=== PATIENT | male | born 1965 | race Caucasian/White ===

== ENCOUNTER 2021-01-02 17:09 | Outpatient (REF) | payer OTHER, SELFPAY ==
--- NOTE | ~2021-01-02 | XR_ITS ---
EXAMINATION: XR SHOULDER, RIGHT CLINICAL INFORMATION: Right shoulder pain. COMPARISON: None TECHNIQUE: AP external rotation, Grashey, scapular Y, and axillary views of the right shoulder. FINDINGS: No acute fracture or dislocation. Acromioclavicular joint space narrowing with marginal osteophytes. No glenohumeral joint space narrowing. Tiny inferior marginal osteophytes. No osseous erosion. No abnormal soft tissue calcification. XR/XR shoulder RT min 2V IMPRESSION: Moderate acromioclavicular and minimal glenohumeral osteoarthritis.
== END 2021-01-02 17:10 | disposition home or self-care (01) ==
LOC: HO.XRAY 17:09
PROVIDERS: Absent Provider Registered Nurse Community Health; PCP Registered Nurse Community Health; Visit Provider Nurse Practitioner
DX: M25.511 Pain in right shoulder (principal)
CPT/HCPCS: 73030

== ENCOUNTER 2023-05-23 09:24 | Outpatient (REF) | payer MEDICAID, SELFPAY ==
[2023-05-23 10:40] LABS: Creatinine Urine 238.91 mg/dL; Microalbum/Creatinine Ratio Ur 4.1 ug/mg cr (<30)
[2023-05-23 10:53] LABS: Alanine Aminotransferase 31 U/L (0-40); Albumin Level 4.1 g/dL (3.5-5.0); Alkaline Phosphatase 108 U/L (39-117); Anion Gap 9 (12-20); Aspartate Amino Transferase 30 U/L (5-37); Bilirubin Total 0.4 mg/dL (0.0-1.0); Blood Urea Nitrogen 14 mg/dL (9-16); Calcium 9.2 mg/dL (8.4-10.2); Carbon Dioxide 30 mmol/L (22-29); Chloride 105 mmol/L (96-108); Cholesterol 169 mg/dL (<200); Estimated Glomerular Filt Rate > 60; Glucose Random 137 mg/dL (60-115); HDL Cholesterol 53 mg/dL (>40); LDL Cholesterol Calculated 91 mg/dL (<100); Potassium 4.1 mmol/L (3.3-5.1); Sodium 140 mmol/L (135-145); Total Protein 7.8 g/dL (6.5-8.0); Triglycerides 126 mg/dL (<150)
[2023-05-23 11:01] LABS: HBS Num1 12.87 mIU/mL (0-7.99); HBc Num1 0.11 S/CO (0.00-0.79); HBsAGNum1 0.31 S/CO (0.00-0.99); Hepatitis A Antibody IgM 0.21 Index (0-0.79); Hepatitis B Core Antibody Nonreactive (Nonreactive); Hepatitis B Surface Antigen Negative (Negative); ~HepC Num1 0.08 S/CO (0.00-0.79); ~Hepatitis A Antibody IgM Nonreactive (Nonreactive); ~Hepatitis B Surface Antibody REACTIVE (Nonreactive); ~Hepatitis C Antibody Nonreactive (Nonreactive)
[2023-05-23 11:11] LABS: TSH reflex Free T4 3.11 uIU/mL (0.32-4.0)
== END 2023-05-23 09:25 | disposition home or self-care (01) ==
LOC: HO.LAB 09:24
PROVIDERS: PCP Registered Nurse; Visit Provider Registered Nurse
DX: Z00.00 Encounter for general adult medical examination without abnormal findings (principal); E11.69 Type 2 diabetes mellitus with other specified complication; E07.9 Disorder of thyroid, unspecified
CPT/HCPCS: 36415; 80053; 80061; 82043; 82570; 84153; 84443; 86704; 86706; 86709; 86803; 87340

== ENCOUNTER 2023-06-25 11:36 | Emergency (ER) | payer MEDICAID, SELFPAY ==
--- NOTE | 2023-06-25 11:45 | ECG_ITS ---
Test Reason : ABDOMINAL PAIN Blood Pressure : / mmHG Vent. Rate : 072 BPM Atrial Rate : 072 BPM P-R Int : 154 ms QRS Dur : 074 ms QT Int : 386 ms P-R-T Axes : 033 -05 038 degrees QTc Int : 422 ms Normal sinus rhythm Normal ECG When compared with ECG of 27-APR-2019 17:50, No significant change was found Referred By: Brynn Peña Electronically Signed By:KAMRYN TORRES MD
--- NOTE | 2023-06-25 11:45 | ED_ITS ---
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 Related Data Allergies Allergy/AdvReac Type Severity Reaction Status Date / Time No Known Allergies Allergy Verified 06/25/23 11:51 [No Known Allergies*] Review of Systems Review of Systems Pertinent positives and negatives as stated in HPI PMFSH Past Medical History Source: nursing notes reviewed Social History Social History Smoked in Last 30 Days: No Use of substances other than those prescribed or required for medical reasons: No Advance Directives: No Advance Directives Information Provided: No Physical Exam ED Vital Signs: Vital Signs - 24 hr 06/25/23 11:46 06/25/23 11:52 06/25/23 14:15 Temperature 97.6 F Pulse Rate 78 73 69 Respiratory Rate 16 16 16 Blood Pressure 117/63 104/59 L Pulse Oximetry 99 99 100 Oxygen Delivery Method Room Air Room Air Room Air BMI result Body Mass Index 33.3 VITAL SIGNS: Reviewed. GENERAL: Well developed, well nourished, in no acute distress. HEAD: Normocephalic/atraumatic EYES: PERRLA, EOMI EARS: Ext canals without abnormality NOSE: Nares patent bilateral OROPHARYNX: no oral lesions noted, posterior pharynx clear NECK: Supple, no adenopathy LUNGS: Normal breath sounds. No adventitious sounds or accessory muscle use. SpO2<99> CARDIOVASCULAR: Regular rate and rhythm without noted murmurs ABDOMEN: Soft, non-tender, non-distended with bowel sounds. MUSCULOSKELETAL: No tenderness, deformities, or effusions noted on gross inspection. EXTREMITIES: No cyanosis, clubbing or edema. SKIN: Inspection of the skin reveals no rashes NEUROLOGIC: Alert and oriented x 4. Strength and sensation to light touch were grossly intact x 4. NIH Stroke Scale Internal: Initial- Upon Arrival Level of Consciousness: Alert Level of Consciousness Questions: Answers both questions correctly Level of Consciousness Commands: Performs both tasks correctly Best Gaze: Normal Visual: No visual loss Facial Palsy: Normal Motor Arm (Right): No drift Motor Arm (Left): No drift Motor Leg (Right): No drift Motor Leg (Left): No drift Limb Ataxia: Absent Sensory: Normal Best Language: No aphasia Dysarthia: Normal Extinction and Inattention: No abnormality Score: 0 Medical Decision Making Medical Decision Making [facility] Narrative: 1205: 58-year-old male with history and clinical presentation, DDX: Suspect near-syncope secondary to abdominal pain and nausea, no clinical suspicion for TIA/intracranial pathology at this time, will evaluate for possible infection. The who we obtained collateral information from provides information that does not seem to make sense, she states that her goddaughter was trying to reach EMS for the past 4 hours. I reviewed all investigations and hematologic indices are negative for leukocytosis/anemia/thrombocytopenia. Coagulation studies are without evidence derangement. Chemistry indices not indicative of LAWANDA/electrolyte or liver enzyme derangements. Patient has no evidence to suggest a low blood sugar and also on further questioning with a customer engagement representative he states that his blood sugar was fine when he checked it at home. Viral testing negative for influenza/RSV/COVID. 1425: I evaluated the patient again at bedside and had him sit at the edge of the bed and then stand as well as ambulate around in the room. Patient was noted to ambulate with a steady gait and denies feeling lightheaded/dizzy or short of breath and denies experiencing any palpitations. Patient also denies any further feelings GI upset. Urinalysis is negative for UTI or hematuria and UDS is negative. Patient's symptoms have completely resolved, suspect he may have had a small episode food poisoning as he reports he ate a bunch of pork last night. Differential Diagnosis Differential Diagnoses: The differential diagnosis associated with the presentation includes Please see the discussion above Admission/Observation Consideration of admission/observation: Escalation of care including admission/observation considered Please see the discussion above Lab Data [facility] Lab Attestation statement: I reviewed the patient's lab results. Please see the discussion above 06/25/23 12:07 06/25/23 12:07 Labs: Lab Results 03/01/0906/25/23 06/25/23 Range/Units 12:07 12:08 14:31 WBC 8.3 (4.8-10.8) X10*3/uL RBC 5.14 (4.60-5.80) X10*6/uL Hgb 15.5 (14.0-18.0) g/dl Hct 46.3 (42.0-52.0) % MCV 90.1 (80.0-98.0) fL MCH 30.2 (27.0-33.0) pg MCHC 33.5 (31.0-36.0) g/dl RDW 13.5 (11.0-16.0) % Plt Count 203 (160-400) X10*3/uL MPV 10.7 (9.4-12.4) fL Immature Gran % (Auto) 0.4 (0.0-0.4) % Neut % (Auto) 82.7 H (45-73) % Lymph % (Auto) 12.7 L (20-40) % [place] % (Auto) 3.6 (2-11) % Eos % (Auto) 0.2 (0-4) % Baso % (Auto) 0.4 (0-2) % Lymph # (Auto) 1.1 L (1.2-4.9) X10*3/uL [place]t # (Auto) 0.3 (0.1-1.2) X10*3/uL Eos # (Auto) 0.0 (0.0-0.4) X10*3/uL Baso # (Auto) 0.0 (0.0-0.2) X10*3/uL Abs Immat Gran (auto) 0.03 (0.00-0.03) X10*3/uL Absolute Neuts (auto) 6.8 (2.0-8.3) x10*3/uL Absolute Nucleated RBC 0.000 (0.0-0.012) X10*3/uL Nucleated RBC % (auto) 0.0 (0.0-0.2) /100WBC PT 13.8 H (11.1-13.3) SEC INR 1.1 (0.9-1.1) Sodium 139 (135-145) mmol/L Potassium 4.7 (3.3-5.1) mmol/L Chloride 105 (96-108) mmol/L Carbon Dioxide 27 (22-29) mmol/L Anion Gap 12 (12-20) BUN 25 H (9-16) mg/dL Creatinine 0.98 (0.5-1.4) mg/dL Estim Creat Clear Calc 86.0 Estimated GFR > 60 POC Glucose 189 H (60-115) mg/dL Random Glucose 210 H (60-115) mg/dL Calcium 9.0 (8.4-10.2) mg/dL Total Bilirubin 0.6 (0.0-1.0) mg/dL AST 28 (5-37) U/L ALT 31 (0-40) U/L Alkaline Phosphatase 103 (39-117) U/L Troponin I High Sens 4.9 (<3.5-35.0) ng/L Total Protein 7.4 (6.5-8.0) g/dL Albumin 4.2 (3.5-5.0) g/dL Lipase 20 (8-78) U/L Urine Color Yellow Urine Appearance Clear Urine pH 7.0 (5.0-9.0) Ur Specific [place] >= 1.030 H (1.005-1.025) Urine Protein Trace (Neg-Trace) mg/dL Urine Glucose (UA) >=1000 H (Negative) mg/dL Urine Ketones 15 (Negative) mg/dL Urine Blood Negative (Negative) Urine Nitrite Negative (Negative) Ur Leukocyte Esterase Negative (Negative) Urine RBC 0-2 (0-2) /HPF Urine WBC 0-5 (0-5) /HPF Ur Squamous Epith Cells 0-2 (0-2) /HPF Urine Bacteria None Seen (None Seen) Hyaline Casts 0-2 (0-2) /LPF Urine Opiates Screen Not Detected (Not Detect) Urine Fentanyl Screen Not Detected (Not Detect) Ur Barbiturates Screen Not Detected (Not Detect) Ur Phencyclidine Scrn Not Detected (Not Detect) Ur Amphetamines Screen Not Detected (Not Detect) U Benzodiazepines Scrn Not Detected (Not Detect) Urine Cocaine Screen Not Detected (Not Detect) U Marijuana (THC) Screen Not Detected (Not Detect) Ethyl Alcohol < 10 mg/dL Influenza Type A (PCR) NEGATIVE (Negative) Influenza Type B (PCR) NEGATIVE (Negative) RSV RNA Qual (PCR) NEGATIVE (Negative) SARS-CoV-2 RNA (RT-PCR) NEGATIVE (Negative) Independent Interpretation I performed an independent interpretation of an: EKG Interpretation: Normal sinus rhythm, HR-72, no STEMI, FL/QRS/QTC is within normal limits. External Record Review External record reviewed: Outpatient record, Prior outpatient labs and Prior outpatient radiology Chronic Conditions Patient?s care impacted by: Diabetes and Hypertension Critical Care Time Critical Care Time Critical Care Time: Yes Total Critical Care Time: 45 Attestation: I personally attest to this time spent taking care of the patient. Discharge Plan Discharge Clinical Impression: Epigastric discomfort, Nausea Patient Disposition: Home, Self-Care Instructions: Abdominal Pain (ED), Lightheadedness (ED) Additional Instructions: 1. Reanudar todos los medicamentos caseros seg?n lo recetado. 2. Contin?e bebiendo muchos l?quidos y maryam un seguimiento con ha m?dico de atenci?n primaria el lunes por la ma?keke. Regrese a la emmanuel de emergencias si experimenta alg?n empeoramiento de los s?ntomas. 1. Resume all home medications as prescribed. 2. Continue to drink plenty of fluids and follow-up with your primary care doctor on Tuesday morning. Return to the emergency room if you experience any worsening of symptoms. Referrals: [facility] [Primary Care Provider] - Print Language: Hungarian
[2023-06-25 11:46] VITALS: BP 117/63; BP 128/70; PULSE 78; PULSE 82; RESP 16; TEMP 36.4; O2SAT 100; O2SAT 99; BMI 33.3
[2023-06-25 11:52] VITALS: PULSE 73; RESP 16; O2SAT 99
[2023-06-25 12:11] LABS: Glucose, Whole Blood 189 mg/dL (60-115)
[2023-06-25 12:19] LABS: Basophils Percent Auto 0.4 % (0-2); Eosinophils Percent Auto 0.2 % (0-4); Hematocrit 46.3 % (42.0-52.0); Hemoglobin 15.5 g/dl (14.0-18.0); Imm Gran Abs Auto 0.03 X10*3/uL (0.00-0.03); Imm Gran Pct Auto 0.4 % (0.0-0.4); Lymphocytes Absolute Auto 1.1 X10*3/uL (1.2-4.9); Lymphocytes Percent Auto 12.7 % (20-40); MANUAL DIFF FLAG NO; Mean Corpuscular HGB Conc 33.5 g/dl (31.0-36.0); Mean Corpuscular Hemoglobin 30.2 pg (27.0-33.0); Mean Corpuscular Volume 90.1 fL (80.0-98.0); Mean Platelet Volume 10.7 fL (9.4-12.4); Monocytes Absolute Auto 0.3 X10*3/uL (0.1-1.2); Monocytes Percent Auto 3.6 % (2-11); Neutrophils Absolute Auto 6.8 x10*3/uL (2.0-8.3); Neutrophils Percent Auto 82.7 % (45-73); Platelet Count 203 X10*3/uL (160-400); Red Blood Count 5.14 X10*6/uL (4.60-5.80); Red Cell Distribution Width 13.5 % (11.0-16.0); White Blood Count 8.3 X10*3/uL (4.8-10.8)
[2023-06-25 12:26] LABS: INTERNATIONAL NORM RATIO 1.1 (0.9-1.1); Prothrombin Time 13.8 SEC (11.1-13.3)
[2023-06-25 12:44] LABS: Alanine Aminotransferase 31 U/L (0-40); Albumin Level 4.2 g/dL (3.5-5.0); Alkaline Phosphatase 103 U/L (39-117); Anion Gap 12 (12-20); Aspartate Amino Transferase 28 U/L (5-37); Bilirubin Total 0.6 mg/dL (0.0-1.0); Blood Urea Nitrogen 25 mg/dL (9-16); Carbon Dioxide 27 mmol/L (22-29); Chloride 105 mmol/L (96-108); Estimated Glomerular Filt Rate > 60; Glucose Random 210 mg/dL (60-115); Potassium 4.7 mmol/L (3.3-5.1); Sodium 139 mmol/L (135-145); Total Protein 7.4 g/dL (6.5-8.0)
[2023-06-25 12:51] LABS: Troponin-I High Sensitivity 4.9 ng/L (<3.5-35.0)
[2023-06-25 13:02] LABS: Influenza A PCR NEGATIVE (Negative); Influenza B PCR NEGATIVE (Negative); Resp Syncy Virus RNA Qual PCR NEGATIVE (Negative); SARS COV2 PCR INHOUSE NEGATIVE (Negative)
[2023-06-25 13:33] LABS: Ethanol < 10 mg/dL
[2023-06-25 14:14] LABS: Lipase 20 U/L (8-78)
[2023-06-25 14:15] VITALS: BP 104/59; PULSE 69; RESP 16; O2SAT 100
[2023-06-25 14:37] LABS: Appearance Urine Clear; Color Urine Yellow; Glucose Urine UA >=1000 mg/dL (Negative); Leukocyte Esterase Urine Negative (Negative); Nitrite Urine Negative (Negative); Specific Gravity - Urine >= 1.030 (1.005-1.025); UMIC TRIGGER UACC YES; Urine Blood Negative (Negative); Urine Ketones 15 mg/dL (Negative); Urine Protein Trace mg/dL (Neg-Trace)
[2023-06-25 14:42] LABS: Bacteria Urine None Seen (None Seen); Hyaline Casts Urine 0-2 /LPF (0-2); RBC Urine 0-2 /HPF (0-2); Squamous Epithelial Cell Urine 0-2 /HPF (0-2); WBC Urine 0-5 /HPF (0-5)
[2023-06-25 14:52] LABS: Amphetamine Screen Urine Not Detected (Not Detect); Barbiturates, Urine Not Detected (Not Detect); Benzodiazepines Screen Urine Not Detected (Not Detect); Cannabinoid Screen Urine Not Detected (Not Detect); Cocaine Screen Urine Not Detected (Not Detect); Fentanyl, urine Not Detected (Not Detect); Opiate Screen Urine Not Detected (Not Detect); Phencyclidine Screen Urine Not Detected (Not Detect)
== END 2023-06-25 15:18 | disposition home or self-care (01) ==
PROVIDERS: Emergency Provider Student in an Organized Health Care Education/Training Program
DX: R10.13 Epigastric pain (principal); R10.9 Unspecified abdominal pain; R55 Syncope and collapse; R11.0 Nausea; Z11.52 Encounter for screening for COVID-19; Z20.828 Contact with and (suspected) exposure to other viral communicable diseases
CPT/HCPCS: 0241U; 80053; 80307; 81001; 82947; 83690; 84484; 85025; 85610; 93005; 99284

== ENCOUNTER → 2023-06-25 11:45 | Outpatient (BNV) | payer MEDICAID, SELFPAY | PROVIDERS: Emergency Provider Student in an Organized Health Care Education/Training Program; Visit Provider Internal Medicine Cardiovascular Disease | DX: R10.9 Unspecified abdominal pain (principal) | CPT/HCPCS: 93010 ==

== ENCOUNTER 2024-05-18 13:05 | Emergency (ER) | payer OTHER, SELFPAY ==
--- NOTE | ~2024-05-18 | XR_ITS ---
EXAMINATION: XR LUMBOSACRAL SPINE CLINICAL INFORMATION: injury COMPARISON: None available. TECHNIQUE: Three views of the lumbosacral spine. FINDINGS: Multilevel marginal osteophyte formation and syndesmophyte formation from the lower thoracic spine to the lumbar spine. No acute cortical disruption. Questionable grade 1 retrolisthesis L3-4 and L2-3 levels. Facet joint hypertrophy at L4-5 and L5-S1 levels. XR/XR lumbar spine 2-3V IMPRESSION: Multilevel thoracolumbar spondylosis without acute fracture or trauma-related listhesis. If patient's symptoms persist recommend CT. Electronically signed by: Tim Cates MD 05/18/2024 03:11 PM [facility]
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
[2024-05-18 13:46] VITALS: BP 123/76; PULSE 81; RESP 20; TEMP 36.8; O2SAT 96; BMI 35.7
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
--- OUTSIDE RECORDS SUMMARY | 2024-05-18 16:57 | XMS_ITS | Clinical Summary ---
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 clinically validated in patients less than 2 years old. ?? 06/09/2021 8:01 AM EST Result [facility] Zoë Adams CLINIC SPECIALIST LAB BLOOD ORDERABLES Final Res ult [facility] [address] from Last 3 Months or Most Recently Relevant to Health Maintenance [facility] Care Teams Machine Tool Operator Relationship Specialty Start Date End Date Whitney Flynn FNP [address] [place] [phone] PCP - General Family Medicine 12/16/21
--- OUTSIDE RECORDS SUMMARY | 2024-05-18 16:57 | XMS_ITS | Encounter Summary ---
Author Organization [employer] Address [address] [facility] 7t [place] [address] Care Team Providers Care Drilling Assistant Name Role Phone [facility] Primary Care Provider [phone] Encounter Details Date Type Department Care Team (Late st Contact Info) Description 02/28/2023 Orders Only [facility] [address] [place], [place] [phone] Cat Hernadez LPN Social History Tobacco Use Types Packs/Day Years Used Date Smoking Tobacco: Never Assessed Sex and Gender Information Value Date Recorded Sex Assigned at Male 02/15/2022 10:17 AM EDT Legal Sex Male 10:17 AM EDT Gender Identity Male 02/15/2022 10:17 AM EDT Sexual Orientation Straight 02/15/2022 10 :17 AM EDT documented as of this encounter Plan of Treatment Upcoming Encounters Date Type Department Care Team (Late st Contact Info) Description 07/11/2024 10:30 AM EDT Office Visit [facility] MED[facility] [address] [place], [place] [phone] [facility] [address] [place], [place] [phone] documented as of this encounter Procedures Procedure Name Priority Date/Time Associated Diagnosis Comments URINALYSIS, COMPLETE, WITH REFLEX TO CULTURE Routine 06/25/2023 2:31 PM EST DRUG MONITOR, PANEL 1, SCREEN, URINE Routine 06/25/2023 2:31 PM EST GLUCOSE, WHOLE BLOOD Routine 06/25/2023 12:08 PM EST HIGH SENSITIVITY TROPONIN I Routine 06/25/2023 12:07 PM EST ETHANOL Routine 06/25/2023 12:07 PM EST SARS COV2/INFLUENZA A/B AND RSV RNA QL NAAT Routine 06/25/2023 12:07 PM EST CBC WITH AUTO DIFFERENTIAL Routine 06/25/2023 12:07 PM EST PROTHROMBIN TIME-INR Routine 06/25/2023 12:07 PM EST LIPASE Routine 06/25/2023 12:07 PM EST COMPREHENSIVE METABOLIC PANEL Routine 06/25/2023 12:07 PM EST documented in this encounter Results * Drug Monitoring, Panel 1, Screen, Urine (06/25/2023 2:31 PM EST) Opiate Screen Urine Not Detected Not Detect [facility] Comment:Opiate cut-off is 30 0 ng/mL.Positive results are unconfirmed and should not be used fornon-medical purposes. Barbiturates, Urine Not Detected Not Detect [facility] Comment:Barbiturate cut-off is 200 ng/mL.Positive results are unconfirmed and should not be used fornon-medical purposes. Phencyclidine Screen Urine Not Detected Not Detect [facility] Comment:Phencyclidine cut-of f is 25 ng/mL.Positive results are unconfirmed and should not be used fornon-medical purposes. Amphetamine Screen Urine Not Detected Not Detect [facility] Comment:Amphetamine cut-off is 1000 ng/mL.Positive results are unconfirmed and should not be used fornon-medical purposes. Benzodiazepines Screen Urine Not Detected Not Detect [facility] Comment:Benzodiazepine cut-o ff is 200 ng/mL.Positive results are unconfirmed and should not be used fornon-medical purposes. Cocaine Screen Urine Not Detected Not Detect [facility] Comment:Cocaine cut-off is 3 00 ng/mL.Positive results are unconfirmed and should not be used fornon-medical purposes. Cannabinoid Screen Urine Not Detected Not Detect [facility] Comment:Cannabinoid cut-off is 50 ng/mL.Positive results are unconfirmed and should not be used fornon-medical purposes. FENTANYL URINE Not Detected Not Detect [facility] Comment:Fentanyl cut-off is 1 ng/mL.Positive results are unconfirmed and should not be used fornon-medical purposes. 06/25/2023 2:31 PM EST 06/25/2023 2:33 PM EST us Generic External Data Provider LAB URINE ORDERAB LES Final Result [facility] [address] [place] [phone] * (ABNORMAL) Urinalysis, Complete, with Reflex to Culture (06/25/2023 2:31 PM EST) Color Urine Yellow [facility] Appearance Urine Clear [facility] PH 7.0 5.0 - 9.0 [facility] Glucose Urine UA >=1000(A) Negative mg/dL [facility] Urine Blood Negative Negative [facility] Specific [place] - Urine >=1.030(H) 1.005 - 1.025 [facility] Urine Protein Trace Neg-Trace mg/dL [facility] Urine Ketones 15 Negative mg/dL [facility] Nitrite Urine Negative Negative [facility] Leukocyte Esterase Urine Negative Negative [facility] RBC Urine 0-2 0 - 2 /HPF [facility] Urine WBC 0-5 0 - 5 /HPF [facility] Urine Squamous Epithelial Cell 0-2 0 - 2 /HPF [facility] Urine Bacteria None Seen None Seen [facility] Hyaline Casts, Urine 0-2 0 - 2 /LPF [facility] 06/25/2023 2:31 PM EST 06/25/2023 2:33 PM EST Narrative [facility] - 06/25/2023 2:43 PM EST [id number], Clean Catch Generic External Data Provider LAB URINE ORDERAB LES Final Result Performing Organization Address [facility] Co de Phone Number [facility] [address] [place] [phone] * (ABNORMAL) Glucose, Whole Blood (06/25/2023 12:08 PM EST) Glucose, Whole Blood 189(H) 60 - 115 mg/dL [facility] Comment:METER #: [id number] 06/25/2023 12:0 8 PM EST 06/25/2023 12:11 PM EST Generic External Data Provider LAB BLOOD ORDERAB LES Final Result Performing Organization Address [facility] Co de Phone Number [facility] [address] [place] [phone] * Lipase (06/25/2023 12:07 PM EST) Lipase 20 8 - 78 U/L [facility] 06/25/2023 12:0 7 PM EST 06/25/2023 12:16 PM EST Generic External Data Provider LAB BLOOD ORDERAB LES Final Result Performing Organization Address [facility] Co de Phone Number [facility] [address] [place] [phone] * Ethanol (06/25/2023 12:07 PM EST) ETHANOL (MG/DL) IN SER/PLAS <10 mg/dL [facility] Comment:Serum/plasma ethanol results are to be used formedical/treatment purposes only. 06/25/2023 12:0 7 PM EST 06/25/2023 12:16 PM EST Generic External Data Provider LAB BLOOD ORDERAB LES Final Result Performing Organization Address [facility]/ZIP Co de Phone Number [facility] [address] [place] [phone] * SARS-CoV-2 RNA, Influenza A/B, and RSV RNA, Ql NAAT (06/25/2023 12:07 PM EST) Influenza A PCR NEGATIVE Negative [facility] Influenza B PCR NEGATIVE Negative [facility] Resp Syncy Virus RNA Qual PCR NEGATIVE Negative [facility] SARS COV2 PCR NEGATIVE Negative [facility] Comment:All test results mus t be correlated with clinical findings.Negative results do not preclude SARS-CoV2, influenza Avirus, influenza B virus and/or RSV infectionand should not be used as the sole basis for treatment orother patient management decisions. Negative results must becombined with clinical observations, patient history, andepidemiological information.This test has not been evaluated for monitoring treatment ofinfection.This test has been authorized by the FDA under an EmergencyUse Authorization (EUA) for use by authorized laboratories.Testing performed on the [employer] GeneXpert utilizingreal-time RT-PCR.All SARS CoV2 and positive influenza A/B results arereported to [facility]. 06/25/2023 12:0 7 PM EST 06/25/2023 12:16 PM EST Generic External Data Provider LAB MICROBIOLOGY - GENERAL ORDERABLES Final Result Performing Organization Address [facility] Co de Phone Number [facility] [address] [place] [phone] * High Sensitivity Troponin I (06/25/2023 12:07 PM EST) TROPONIN I HIGH SENSITIVITY 4.9 <3.5 - 35.0 ng/L [facility] Comment:The [employer]ia high sens itivity Troponin-I results should beused in conjunction with other diagnostic information suchas ECG, clinical observations and information, and patientsymptoms to aid in the diagnosis of PR. 06/25/2023 12:0 7 PM EST 06/25/2023 12:16 PM EST us Generic External Data Provider LAB BLOOD ORDERAB LES Final Result [facility] [address] [place] [phone] * (ABNORMAL) Comprehensive Metabolic Panel (06/25/2023 12:07 PM EST) Sodium 139 135 - 145 mmol/L [facility] Potassium 4.7 3.3 - 5.1 mmol/L [facility] Chloride 105 96 - 108 mmol/L [facility] Carbon Dioxide 27 22 - 29 mmol/L [facility] Anion Gap 12 12 - 20 [facility] Urea Nitrogen (BUN) 25(H) 9 - 16 mg/dL [facility] Creatinine, Serum 0.98 0.5 - 1.4 mg/dL [facility] Creatinine Clr Calc Pharmacy 86.0 [facility] Comment:eGFR (calculated fro m the MDRD study equation) and eCrCl(calculated from the Cockcroft-Gault equation) are based ondifferent parameters and may not yield comparable results.If eCrCl result is absurd, please check patient'sheight/weight. Estimated Glomerular Filt Rate >60 [facility] Comment:NOTE: For -Am erican individuals, multiply the result by 1.210.Chronic Kidney Disease: Estimated GFR < 60 mL/min/1.06p9Wvbuzu Kidney Disease: Estimated GFR < 15 mL/min/1.73m2 Glucose 210(H) 60 - 115 mg/dL [facility] Calcium 9.0 8.4 - 10.2 mg/dL [facility] Bilirubin, Total 0.6 0.0 - 1.0 mg/dL [facility] Aspartate Amino Transferase 28 5 - 37 U/L [facility] Alanine Aminotransferase 31 0 - 40 U/L [facility] Total Protein 7.4 6.5 - 8.0 g/dL [facility] Albumin Level 4.2 3.5 - 5.0 g/dL [facility] Alkaline Phosphatase 103 39 - 117 U/L [facility] 06/25/2023 12:0 7 PM EST 06/25/2023 12:16 PM EST us Generic External Data Provider LAB BLOOD ORDERAB LES Final Result Performing Organization Address [facility] Co de Phone Number [facility] [address] [place] [phone] * (ABNORMAL) Prothrombin Time-INR (06/25/2023 12:07 PM EST) Prothrombin Time 13.8(H) 11.1 - 13.3 SEC [facility] INTERNATIONAL NORM RATIO 1.1 0.9 - 1.1 [facility] Comment:INTERNATIONAL NORMAL IZED RATIO (INR) REFERENCE RANGES Reference RangeFor patients not on anticoagulant therapy: 0.9 - 1.1INR ranges for oral anticoagulanttherapy:For prevention and treatment of venous thrombosis and pulmonary embolism: 2.0 - 3.0For acute myocardial infarction with aspirin therapy: 2.0 - 3.0For acute myocardial infarction without aspirin therapy: 3.0 - 4.0For patients with mechanical prosthetic heart valves: 2.5 - 3.5 06/25/2023 12:0 7 PM EST 06/25/2023 12:16 PM EST us Generic External Data Provider LAB BLOOD ORDERAB LES Final Result Performing Organization Address [facility] Co de Phone Number [facility] [address] [place] [phone] * (ABNORMAL) CBC auto differential (06/25/2023 12:07 PM EST) White Blood Count 8.3 4.8 - 10.8 X10*3/uL [facility] Red Blood Count 5.14 4.60 - 5.80 X10*6/uL [facility] Hemoglobin 15.5 14.0 - 18.0 g/dl [facility] Hematocrit 46.3 42.0 - 52.0 % [facility] Mean Corpuscular Volume 90.1 80.0 - 98.0 fL [facility] Mean Corpuscular Hemoglobin 30.2 27.0 - 33.0 pg [facility] Mean Corpuscular HGB Conc 33.5 31.0 - 36.0 g/dl [facility] Red Cell Distribution Width 13.5 11.0 - 16.0 % [facility] Platelet Count 203 160 - 400 X10*3/uL [facility] Mean Platelet Volume 10.7 9.4 - 12.4 fL [facility] Neutrophils Percent Auto 82.7(H) 45 - 73 % [facility] Imm Gran Pct Auto 0.4 0.0 - 0.4 % [facility] Lymphocytes Percent Auto 12.7(L) 20 - 40 % [facility] Monocytes Percent Auto 3.6 2 - 11 % [facility] Eosinophils Percent Auto 0.2 0 - 4 % [facility] Basophils Percent Auto 0.4 0 - 2 % [facility] NRBC Pct Auto 0.0 0.0 - 0.2 /100WBC [facility] Neutrophils Absolute Auto 6.8 2.0 - 8.3 x10*3/uL [facility] Imm Gran Abs Auto 0.03 0.00 - 0.03 X10*3/uL [facility] Lymphocytes Absolute Auto 1.1(L) 1.2 - 4.9 X10*3/uL [facility] Monocytes Absolute Auto 0.3 0.1 - 1.2 X10*3/uL [facility] Eosinophils Absolute Auto 0.0 0.0 - 0.4 X10*3/uL [facility] Basophils Absolute Auto 0.0 0.0 - 0.2 X10*3/uL [facility] NRBC Abs Auto 0.000 0.0 - 0.012 X10*3/uL [facility] 06/25/2023 12:0 7 PM EST 06/25/2023 12:16 PM EST us Generic External Data Provider LAB BLOOD ORDERAB LES Final Result Performing Organization Address City/State/[facility] Co de Phone Number [facility] [address] [place] [phone] documented in this encounter Visit Diagnoses Not on filedocumented in this encounter Care Teams Drilling Assistant Relationship Specialty Start Date End Date Whitney Flynn FNP [address] [place] [phone] PCP - General Family Medicine 12/16/21 documented as of this encounter
--- OUTSIDE RECORDS SUMMARY | 2024-05-18 16:57 | XMS_ITS | Encounter Summary ---
Author Organization [employer] Address [address] [facility] [address]t [place] [address] Care Team Providers Care Electronics Worker Name Role Phone [place] [facility] Primary Care Provider [phone] Encounter Details Date Type Department Care Team ([facility] st Contact Info) Description 05/14/2024 Telephone [facility] [address] [place], [place] [phone] [facility] [address] [place], [place] [phone] Social History Tobacco Use Types Packs/Day Years Used Date Smoking Tobacco: Never Smokeless Tobacco: Never Alcohol Use Standard Drinks/Week Comments Never 0 [...] AM EDT documented as of this encounter Miscellaneous Notes * Telephone Encounter - Marli Vale - 05/14/2024 8:27 AM EST Called pt no answer lvm informing pt that there appt for today has been cancelled due to the provider and they can call us back to rs appt. documented in this encounter Plan of Treatment Upcoming Encounters Date Type Department Care Team (Late st Contact Info) Description 07/11/2024 10:30 AM EDT Office Visit [facility] [address] [place] [phone] Whitney Flynn FNP [address] [place] [address] documented as of this encounter Visit Diagnoses Not on filedocumented in this encounter Additional Health Concerns Assessment Noted Time PHQ-9 Depression Total Score: 8 05/13/19 24 9:33 AM EST documented as of this encounter Care Teams Electronics Worker Relationship Specialty Start Date End Date Whitney Flynn FNP [address] [place] [address] PCP - General Family Medicine 12/16/21 documented as of this encounter
--- OUTSIDE RECORDS SUMMARY | 2024-05-18 16:57 | XMS_ITS | Encounter Summary ---
Author Organization [employer] Address [address] [facility] 7t [place] [address] Care Team Providers Care Csw Name Role Phone [place] [facility] Primary Care Provider [phone] Encounter Details Date Type Department Care Team (Late st Contact Info) Description 05/18/2024 Orders Only [facility] External Provider, [facility] Social History Tobacco Use Types Packs/Day Years [...] Upcoming Encounters Date Type Department Care Team ([facility] st Contact Info) Description 07/11/2024 10:30 AM EDT Office Visit [facility] [address] [place] [address] [facility] [address] [place], [place] [phone] documented as of this encounter Procedures Procedure Name Priority Date/Time Associated Diagnosis Comments XR LUMBAR SPINE 2-3 VIEWS Routine 05/18/2024 2:[address] CERVICAL SPINE WO CONTRAST Routine 05/18/2024 2:31 PM EST XR SHOULDER 2+ VIEWS RIGHT Routine 05/18/2024 2:20 PM EST documented in this encounter Results * XR Lumbar Spine 2-3 Views (05/18/2024 2:50 PM EST) Anatomical Region Laterality Modality Spine, L-spine Radiographic Dayanna ging 05/18/2024 2:50 PM EST Narrative 05/18/2024 3:14 PM EST ? [facility] ?[address] ?[place] [address] ?XRay Report ? Signed ? Patient: Iain,Reynaldo ?MR#: [id number] ? : 1965 ?Acct:[id number] ? Age/Sex: 59 / M ?ADM Date: /31/25 ? Loc: HO.ED ? Attending Dr: ? Ordering Physician: Dany Hernandez ?? Date of Service: 05/18/24 ?? Procedure(s): XR lumbar spine 2-3V ?? Accession Number(s): [id number] ? cc: [facility]; Dany Hernandez ? EXAMINATION: ?? XR LUMBOSACRAL [...] DD/ 1450 ? TD/TT: 05/18/24 1504 ? Printer Maintainer: ? Procedure Note Donleslie, Image - 05/18/2024 [place] [address] XRay Report Signed Patient: Victor Manuel Timmons LMR#: [id number] : 1965Acct:[id number] Age/Sex: 59 / MADM Date: 05/18/24 Loc: HO.ED Attending Dr: Ordering Physician: Dany Hernandez Date of Service: 05/18/24 Procedure(s): XR lumbar spine 2-3V Accession Number(s): [id number] cc: [facility]; Dany Hernandez EXAMINATION: XR LUMBOSACRAL SPINE CLINICAL [...] Tim Cates MD 05/18/2024 03:11 PM EST RP Dictated By: Tim Mckinney MD Signed By: <Electronically signed by Tim Reis MDin OV> 05/18/24 1511 DD/ 1450 TD/TT: 05/18/24 1504 Printer Maintainer: [facility] External Provider IMG XR PROCEDURES Final Result * CT Cervical Spine w/o Contrast (05/18/2024 2:31 PM EST) Anatomical Region Laterality Modality Spine, C-spine Computed Tomogra phy 05/18/2024 2:31 PM EST Narrative 05/18/2024 3:05 PM EST ? [facility] ?[address] ?[place] [address] ? CT Scan Report ? Signed ? Patient: Iain,Reynaldo ?MR#: [id number] ? : 1965 ?Acct:[id number] ? Age/Sex: 59 / M ?ADM Date: 05/18/24 ? Loc: HO.ED ? Attending Dr: ? Ordering Physician: Dany Hernandez ?? Date of Service: 05/18/24 ?? Procedure(s): CT cervical spine wo IV con ?? Accession Number(s): [id number] ? cc: [facility]; Dany Hernandez ? Report Number: ?? [id number]: Total DLP = ??625.00 mGy-cm ?? EXAMINATION: [...] DD/ 1431 ? TD/TT: 05/18/24 1446 ? Printer Maintainer: ? Procedure Note Sanchez, Image - 05/18/[address] [address] [address] Scan Report Signed Patient: Victor Manuel Timmons LMR#: [id number] : 1965Acct:[id number] Age/Sex: 59 / MADM Date: 05/18/24 Loc: HO.ED Attending Dr: Ordering Physician: Dany Hernandez Date of Service: 05/18/24 Procedure(s): CT cervical spine wo IV con Accession Number(s): [id number] cc: [facility]; Dany Hernandez Report Number: [id number]: Total DLP = 625.00 mGy-cm EXAMINATION: CT [...] Miguel Matos MD 05/18/2024 03:02 PM EST RP Dictated By: Miguel Matos MD Signed By: <Electronically signed by Miguel Matos MD in OV> 05/18/24 1502 DD/ 1431 TD/TT: 05/18/24 1446 Printer Maintainer: [facility] External Provider IMG CT PROCEDURES Final Result * XR Shoulder 2+ Views Right (05/18/2024 2:20 PM EST) Anatomical Region Laterality Modality Upper Extremities, Shoulder Right Radi ographic Imaging 05/18/2024 2:20 PM EST Narrative 05/18/2024 3:15 PM EST ? [facility] ?[address] ?[place] [address] ?XRay Report ? Signed ? Patient: Victor Manuel Timmons ?MR#: [id number] ? : 1965 ?Acct:[id number] ? Age/Sex: 59 / M ?ADM Date: 05/18/24 ? Loc: HO.ED ? Attending Dr: ? Ordering Physician: Dany Hernandez ?? Date of Service: 05/18/24 ?? Procedure(s): XR shoulder RT min 2V ?? Accession Number(s): [id number] ? cc: [facility]; Dany Hernandez ? EXAMINATION: ?? XR SHOULDER, [...] DD/ 1420 ? TD/TT: 05/18/24 1504 ? Printer Maintainer: ? Procedure Note Donotuseinterpreter, Image - 05/18/2024 [place] [address] XRay Report Signed Patient: Victor Manuel Timmons LMR#: [id number] : 1965Acct:[id number] Age/Sex: 59 / MADM Date: 05/18/24 Loc: HO.ED Attending Dr: Ordering Physician: Dany Hernandez Date of Service: 05/18/24 Procedure(s): XR shoulder RT min 2V Accession Number(s): [id number] cc: [facility]; Dany Hernandez EXAMINATION: XR SHOULDER, RIGHT CLINICAL [...] 05/18/24 1511 DD/ 1420 TD/TT: 05/18/24 1504 Printer Maintainer: [facility] External Provider IMG XR PROCEDURES Final Result documented in this encounter Visit Diagnoses Not on filedocumented in this encounter Additional Health Concerns Assessment Noted Time PHQ-9 Depression Total Score: 8 05/13/19 24 9:33 AM EST documented as of this encounter Care Teams Csw Relationship Specialty Start Date End Date [place] MARCELL Olson [address] [place] [address] PCP - General Family Medicine 12/16/21 documented as of this encounter
--- OUTSIDE RECORDS SUMMARY | 2024-05-18 16:57 | XMS_ITS | Encounter Summary ---
Author Organization [employer] Address [address] [facility] [address] [place] [address] Care Team Providers Care Blasting Miner Name Role Phone [place] [facility] Primary Care Provider [phone] Reason for Visit * Reason Onset Date Comments Med Refill 05/02/2024 Encounter Details Date Type Department Care Team (Late st Contact Info) Description 05/02/2024 Refill [facility] [address] [place], [place] [phone] Joanie Ponce, RN [address] [place] [address] Primary hypertension Social History Tobacco Use Types Packs/Day Years [...] encounter Miscellaneous Notes * Telephone Encounter - Joanie Ponce RN - 05/02/2024 9:14 AM EST Medication pended to PCP. ----- Message from Lidia Wood sent at 05/02/2024 8:58 AM EST ----- Regarding: med refill Patient was called for PVP screening and reports he has not received refill notification for prescribed HTN medication Lisinopril. Patient reported he has no more of this medication and requesting a refill of Lisinopril. documented in this encounter Plan of Treatment Upcoming Encounters Date Type Department Care Team (Late st Contact Info) Description 07/11/2024 10:30 AM EDT Office Visit [facility] [address] [place] [address] [place] FNP [address] [place] [address] documented as of this encounter Visit Diagnoses Diagnosis Primary hypertension Unspecified essential hypertension documented in this encounter Additional Health Concerns Assessment Noted Time PHQ-9 Depression Total Score: 8 05/13/19 24 9:33 AM EST documented as of this encounter Care Teams Blasting Miner Relationship Specialty Start Date End Date Whitney Flynn FNP [address] [place] [address] PCP - General Family Medicine 12/16/21 documented as of this encounter
--- OUTSIDE RECORDS SUMMARY | 2024-05-18 16:57 | XMS_ITS | Encounter Summary ---
Author Organization [employer] [facility] Address [address] [facility] [address] [place] [address] Care Team Providers Care Brickmason Name Role Phone Whitney Flynn [facility] Primary Care Provider [phone] Reason for Visit * Reason Comments Med Refill Encounter Details Date Type Department Care Team (Late st Contact Info) Description 02/28/[address] [facility] [address] [place] [address] Name, MD Damion [address] [place] [address] Social History Tobacco Use Types Packs/Day Years [...] Description 07/11/2024 10:30 AM EDT Office Visit [facility] [address] [place] [address] Whitney Flynn [facility] [address] [place] [address] documented as of this encounter Visit Diagnoses Not on filedocumented in this encounter Care Teams Brickmason Relationship Specialty Start Date End Date Whitney Flynn FNP [address] [place] [address] PCP - General Family Medicine 12/16/21 documented as of this encounter
[2024-05-18 17:13] VITALS: BP 123/76; PULSE 81; RESP 20; TEMP 36.8; O2SAT 96
== END 2024-05-18 17:14 | disposition home or self-care (01) ==
PROVIDERS: Emergency Provider Emergency Medicine
DX: S39.012A Strain of muscle, fascia and tendon of lower back, initial encounter (principal); S13.4XXA Sprain of ligaments of cervical spine, initial encounter; M25.511 Pain in right shoulder; M54.2 Cervicalgia; V43.52XA Car driver injured in collision with other type car in traffic accident, initial encounter; Y93.9 Activity, unspecified; Y92.410 Unspecified street and highway as the place of occurrence of the external cause; Y99.8 Other external cause status
CPT/HCPCS: 72100; 72125; 73030; 99282; 99284

== ENCOUNTER → 2024-05-18 14:20 | Outpatient (BNV) | payer MEDICAID, SELFPAY | PROVIDERS: Visit Provider Radiology Diagnostic Radiology | DX: M54.2 Cervicalgia (principal); S39.92XA Unspecified injury of lower back, initial encounter; S49.91XA Unspecified injury of right shoulder and upper arm, initial encounter | CPT/HCPCS: 72100; 72125; 73030 ==

== ENCOUNTER 2024-12-18 12:20 | Outpatient (REF) | payer MEDICAID, SELFPAY ==
--- NOTE | ~2024-12-18 | XR_ITS ---
Exam: Five-view lumbar spine. TECHNIQUE: AP, lateral, lateral spot, and bilateral oblique x-rays of the lumbar spine INDICATION: Acute on chronic low back pain Comparison May 18, 2024 FINDINGS: FINDINGS: There is moderate stool in the transverse colon. There are mild degenerative changes in the SI joints with osteophytes. There are 5 non-rib bearing lumbar segments. Vertebral body height is preserved with stable mild wedging of T12. T12-L1: There is mild disc space narrowing with large anterior osteophytes. L1-L2: There is minimal disc space narrowing with prominent anterior osteophyte L2-L3: There is subtle retrolisthesis with large anterior osteophytes L3-L4: There is grade 1 retrolisthesis with mild disc space narrowing and nonbridging anterior osteophytes L4-L5: There moderate endplate osteophytes and facet sclerosis. L5-S1: There is facet sclerosis. There are small marginal osteophytes. XR/XR lumbar spine 4V min IMPRESSION: Stable multilevel degenerative changes consistent with diffuse idiopathic skeletal hyperostosis (DISH). Electronically signed by: Renan Alcaraz MD 12/18/2024 01:02 PM EDT
--- OUTSIDE RECORDS SUMMARY | 2024-12-18 11:30 | XMS_ITS | Encounter Summary ---
Author Organization [employer] Address [address] [place] [address] [address] [place] [address] Care Team Providers Care Liquid Hydrogen Plant Operator Name Role Phone [facility] Primary Care Provider Reason for Referral * Consultation (Routine) - Pending Review Specialty Diagnoses / Procedures Referred By Eugene frances Referred To Contact Physical Therapy Diagnoses Chronic midline low back pain without sciatica Kathe Kay MD [address] [place] [address] Phone: tel: fax: Referral ID Status Reason Start Date Expiration Date Visits Requested Visits Authorized [id number] Pending Review Specialty Services Required 12/18/2024 12/18/2025 1 1 * Neurology (Routine) - Authorized Specialty Diagnoses / Procedures Referred By Eugene frances Referred To Contact Diagnoses Bilateral carpal tunnel syndrome Procedures Nerve conduction test Kathe Kay MD [address] [place] [address] Phone: tel: fax: [address] Phone: tel: fax: Referral ID Status Reason Start Date Expiration Date V isits Requested Visits Authorized [id number] Authorized 12/18/2024 12/18/2025 1 1 * Neurology (Routine) - Authorized Specialty Diagnoses / Procedures Referred By Eugene frances Referred To Contact Diagnoses Bilateral carpal tunnel syndrome Procedures EMG Kathe Kay MD [address] [place] [address] Phone: tel: fax: [address] Phone: tel: fax: Referral ID Status Reason Start Date Expiration Date V isits Requested Visits Authorized [id number] Authorized 12/18/2024 12/18/2025 1 1 Encounter Details Date Type Department Care Team (Late st Contact Info) Description 12/18/2024 11:30 AM EDT Office Visit [facility] [address] [place] [id number] Kathe Kay MD [address] [place] [phone] Chronic midline low back pain without sciatica (Primary Dx); Bilateral carpal tunnel syndrome Social History Tobacco Use Types Packs/Day Years [...] AM EDT documented as of this encounter Last Filed Vital Signs Vital Sign Reading Time Taken Comments Blood Pressure 122/78 12/18/2024 11:32 AM EDT Pulse 78 12/18/2024 11:32 AM EDT Temperature 36.3 C (97.3 F) 12/18/2024 11:32 AM EDT Respiratory Rate 20 12/18/2024 11:32 AM EDT Oxygen Saturation 98% 12/18/2024 11:32 AM EDT Inhaled Oxygen Concentration - - Weight 96 kg (211 lb 9.6 oz) 12/18/2024 11:32 AM EDT Height 165.1 cm (5' 5 ) 12/18/2024 11:32 AM EDT Body Mass Index 35.21 12/18/2024 11:32 AM EDT documented in this encounter Plan of Treatment Upcoming Encounters Date Type Department Care Team (Late st Contact Info) Description 01/23/2025 2:45 PM EDT Office Visit [facility] [address] [place] [address] [facility] [address] [place] [address] Scheduled Orders Name Type Priority Associated Diagnoses Orde r Schedule EMG Neurology Routine Bilateral carpal tunnel syndrome Expected: 12/18/2024 (Approximate), Expires: 12/18/2025 Nerve conduction test Neurology Routine Bilateral carpal tunnel syndrome Expected: 12/18/2024 (Approximate), Expires: 12/18/2025 Scheduled Referrals Name Type Priority Associated Diagnoses Orde r Schedule Referral to Physical Therapy Outpatient Referral Routine Chronic midline low back pain without sciatica Expected: 12/18/2024 (Approximate), Expires: 12/18/2025 documented as of this encounter Procedures Procedure Name Priority Date/Time Associated Diagnosis Comments XR LUMBAR SPINE COMPLETE 4+ VIEWS Routine 12/18/2024 12:02 PM EDT Chronic midline low back pain without sciatica documented in this encounter Results * XR Lumbar Spine Complete 4+ Views (12/18/2024 12:02 PM EDT) Anatomical Region Laterality Modality Spine, L-spine Radiographic Dayanna ging 12/18/2024 12:0 2 PM EDT Narrative 12/18/2024 1:05 [place] [address] XRay Report Signed Patient: Victor Manuel Timmons MR#: [id number] : 1965 Acct:[id number] Age/Sex: 59 / M ADM Date: 12/18/24 Loc: HO.HHCX Attending Dr: Kathe Mayo MD Ordering Physician: Kathe Kay MD Date of Service: 12/18/24 Procedure(s): XR lumbar spine 4V min Accession Number(s): [id number] cc: Kathe Kay MD Reason for Exam: pt w acute on chronic lower back pain ,more intense Exam: Five-view lumbar spine. TECHNIQUE: AP, lateral, lateral spot, and bilateral oblique x-rays of the lumbar spine INDICATION: Acute on chronic low back pain Comparison May 18, 2024 FINDINGS: FINDINGS: There is moderate stool in the transverse colon. There are mild degenerative changes in the SI joints with osteophytes. There are 5 non-rib bearing lumbar segments. Vertebral body height is preserved with stable mild wedging of T12. T12-L1: There is mild disc space narrowing with large anterior osteophytes. L1-L2: There is minimal disc space narrowing with prominent anterior osteophyte L2-L3: There is subtle retrolisthesis with large anterior osteophytes L3-L4: There is grade 1 retrolisthesis with mild disc space narrowing and nonbridging anterior osteophytes L4-L5: There moderate endplate osteophytes and facet sclerosis. L5-S1: There is facet sclerosis. There are small marginal osteophytes. XR/XR lumbar spine 4V min IMPRESSION: Stable multilevel degenerative changes consistent with diffuse idiopathic skeletal hyperostosis (DISH). Electronically signed by: Renan Alcaraz MD 12/18/2024 01:02 PM EDT RP Dictated By: Renan Alcaraz MD Signed By: <Electronically signed by Renan Alcaraz MD in OV> 12/18/24 1302 DD/ 1202 TD/TT: 12/18/24 1215 Reservation Manager: Procedure Note Donotuseinterpreter, Image - 12/18/[address] [address] XRay Report Signed Patient: Victor Manuel Timmons LMR#: [id number] : 1965Acct:[id number] Age/Sex: 59 / MADM Date: 12/18/24 Loc: HO.HHCX Attending Dr: Kathe Mayo MD Ordering Physician: Kathe Kay MD Date of Service: 12/18/24 Procedure(s): XR lumbar spine 4V min Accession Number(s): [id number] cc: Kathe Kay MD Reason for Exam: pt w acute on chronic lower back pain ,more intense Exam: Five-view lumbar spine. TECHNIQUE: AP, lateral, lateral spot, and bilateral oblique x-rays of the lumbar spine INDICATION: Acute on chronic low back pain Comparison May 18, 2024 FINDINGS: FINDINGS: There is moderate stool in the transverse colon. There are mild degenerative changes in the SI joints with osteophytes. There are 5 non-rib bearing lumbar segments. Vertebral body height is preserved with stable mild wedging of T12. T12-L1: There is mild disc space narrowing with large anterior osteophytes. L1-L2: There is minimal disc space narrowing with prominent anterior osteophyte L2-L3: There is subtle retrolisthesis with large anterior osteophytes L3-L4: There is grade 1 retrolisthesis with mild disc space narrowing and nonbridging anterior osteophytes L4-L5: There moderate endplate osteophytes and facet sclerosis. L5-S1: There is facet sclerosis. There are small marginal osteophytes. XR/XR lumbar spine 4V min IMPRESSION: Stable multilevel degenerative changes consistent with diffuse idiopathic skeletal hyperostosis (DISH). Electronically signed by: Renan Alcaraz MD 12/18/2024 01:02 PM EDT RP Dictated By: Renan Alcaraz MD Signed By: <Electronically signed by Renan Alcaraz MD in OV> 12/18/24 1302 DD/ 1202 TD/TT: 12/18/24 1215 Reservation Manager: Kathe Mayo MD IMG XR PROCEDURES Final Result documented in this encounter Visit Diagnoses Diagnosis Chronic midline low back pain without sciatica- Primary Bilateral carpal tunnel syndrome Carpal tunnel syndrome documented in this encounter Additional Health Concerns Assessment Noted Time PHQ-9 Depression Total Score: 8 05/13/19 24 9:33 AM EST documented as of this encounter Care Teams Liquid Hydrogen Plant Operator Relationship Specialty Start Date End Date [place] FNP [address] [place] [address] PCP - General Family Medicine 12/16/21 documented as of this encounter
--- OUTSIDE RECORDS SUMMARY | 2024-12-18 13:33 | XMS_ITS | Encounter Summary ---
Author Organization [employer] Address [address] [place] [address] [address] [place] [address] Care Team Providers Care Liquor Runner Name Role Phone Whitney Flynn [facility] Primary Care Provider [phone] Reason for Visit * Reason Comments Med Refill Encounter Details Date Type Department Care Team (Late st Contact Info) Description 02/28/2023 Refill [facility] [address] [place] [address] Name, MD Damion [address] [place] [address] Social History Tobacco Use Types Packs/Day Years [...] Description 01/23/2025 2:45 PM EDT Office Visit [facility] [address] [place] [address] Whitney Flynn [facility] [address] [place] [address] documented as of this encounter Visit Diagnoses Not on filedocumented in this encounter Care Teams Liquor Runner Relationship Specialty Start Date End Date Whitney Flynn [facility] [address] [place] [address] PCP - General Family Medicine 12/16/21 documented as of this encounter
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
--- OUTSIDE RECORDS SUMMARY | 2024-12-18 13:33 | XMS_ITS | Encounter Summary ---
Author Organization [employer] Address [address] [facility] [address] [place] [address] Care Team Providers Care Dog Races Manager Name Role Phone Rina, [facility] Primary Care Provider [phone] Encounter Details Date Type Department Care Team (Late st Contact Info) Description 02/28/2023 Orders Only [facility] [address] [place] [address] Cat Hernadez LPN Social History Tobacco Use [...] Description 01/23/2025 2:45 PM EDT Office Visit [facility] [address] [place] [address] [facility] [address] [place] [address] documented as of this encounter Procedures Procedure [...] Opiate Screen Urine Not Detected Not Detect [facility] Comment:Opiate cut-off is 30 0 ng/mL.Positive results are unconfirmed and should not be used fornon-medical purposes. Barbiturates, Urine Not Detected Not Detect [facility] Comment:Barbiturate cut-off is 200 ng/mL.Positive results are unconfirmed and should not be used fornon-medical purposes. Phencyclidine Screen Urine Not Detected Not Detect [facility] Comment:Phencyclidine cut-of f is 25 ng/mL.Positive results are unconfirmed and should not be used fornon-medical purposes. Amphetamine Screen Urine Not Detected Not Detect [facility] Comment:Amphetamine cut-off is 1000 ng/mL.Positive results are unconfirmed and should not be used fornon-medical purposes. Benzodiazepines Screen Urine Not Detected Not Detect [facility] Comment:Benzodiazepine cut-o ff is 200 ng/mL.Positive results are unconfirmed and should not be used fornon-medical purposes. Cocaine Screen Urine Not Detected Not Detect [facility] Comment:Cocaine cut-off is 3 00 ng/mL.Positive results are unconfirmed and should not be used fornon-medical purposes. Cannabinoid Screen Urine Not Detected Not Detect [facility] Comment:Cannabinoid cut-off is 50 ng/mL.Positive results are unconfirmed and should not be used fornon-medical purposes. FENTANYL URINE Not Detected Not Detect [facility] Comment:Fentanyl cut-off is 1 ng/mL.Positive results are unconfirmed and should not be used fornon-medical purposes. 06/25/2023 2:31 PM EST 06/25/2023 2:33 PM EST us Generic External Data Provider LAB URINE ORDERAB LES Final Result [facility] [address] [place] [phone] * (ABNORMAL) Urinalysis, Complete, with Reflex to Culture (06/25/2023 2:31 PM EST) Color Urine Yellow [facility] Appearance Urine Clear [facility] PH 7.0 5.0 - 9.0 [facility] Glucose Urine UA >=1000(A) Negative mg/dL [facility] Urine Blood Negative Negative [facility] Specific Ollie - Urine >=1.030(H) 1.005 - 1.025 [facility] Urine Protein Trace Neg-Trace mg/dL [facility] Urine Ketones 15 Negative mg/dL [facility] Nitrite Urine Negative Negative [facility] Leukocyte Esterase Urine Negative Negative [facility] RBC Urine 0-2 0 - 2 /HPF [facility] Urine WBC 0-5 0 - 5 /HPF [facility] Urine Squamous Epithelial Cell 0-2 0 - 2 /HPF [facility] Urine Bacteria None Seen None Seen [facility] Hyaline Casts, Urine 0-2 0 - 2 /LPF [facility] 06/25/2023 2:31 PM EST 06/25/2023 2:33 PM EST Narrative [facility] - 06/25/2023 2:43 PM EST [id number], Clean Catch us Generic External Data Provider LAB URINE ORDERAB LES Final Result Performing Organization Address [facility] de Phone Number [facility] [address] [place] [phone] * (ABNORMAL) Glucose, Whole Blood (06/25/2023 12:08 PM EST) Glucose, Whole Blood 189(H) 60 - 115 mg/dL [facility] Comment:METER #: [id number] 06/25/2023 12:0 8 PM EST 06/25/2023 12:11 PM EST Generic External Data Provider LAB BLOOD ORDERAB LES Final Result Performing Organization Address [facility] Number [facility] [address] [place] [phone] * Lipase (06/25/2023 12:07 PM EST) Lipase 20 8 - 78 U/L [facility] 06/25/2023 12:0 7 PM EST 06/25/2023 12:16 PM EST Generic External Data Provider LAB BLOOD ORDERAB LES Final Result Performing Organization Address [facility] de Phone Number [facility] [address] [place] [phone] * Ethanol (06/25/2023 12:07 PM EST) ETHANOL (MG/DL) IN SER/PLAS <10 mg/dL [facility] Comment:Serum/plasma ethanol results are to be used formedical/treatment purposes only. 06/25/2023 12:0 7 PM EST 06/25/2023 12:16 PM EST Generic External Data Provider LAB BLOOD ORDERAB LES Final Result Performing Organization Address [facility]/State/ZIP Co de Phone Number [facility] [address] [place] [phone] * SARS-CoV-2 RNA, Influenza A/B, and RSV RNA, Ql NAAT (06/25/2023 12:07 PM EST) Influenza A PCR NEGATIVE Negative [facility] Influenza B PCR NEGATIVE Negative [facility] Resp Syncy Virus RNA Qual PCR NEGATIVE Negative [facility] SARS COV2 PCR NEGATIVE Negative [facility] Comment:All test results mus t be [...] use by authorized laboratories.Testing performed on the [employer] GeneXpert utilizingreal-time RT-PCR.All SARS CoV2 and positive influenza A/B results arereported to [facility]. 06/25/2023 12:0 7 PM EST 06/25/2023 12:16 PM EST Generic External Data Provider LAB MICROBIOLOGY - GENERAL ORDERABLES Final Result [facility] [address] [place] [phone] * High Sensitivity Troponin I (06/25/2023 12:07 PM EST) TROPONIN I HIGH SENSITIVITY 4.9 <3.5 - 35.0 ng/L [facility] Comment:The [place] high sens itivity Troponin-I results should beused in conjunction with other diagnostic information suchas ECG, clinical observations and information, and patientsymptoms to aid in the diagnosis of VA. 06/25/2023 12:0 7 PM EST 06/25/2023 12:16 PM EST us Generic External Data Provider LAB BLOOD ORDERAB LES Final Result [facility] [address] [place] [phone] * (ABNORMAL) Comprehensive Metabolic Panel (06/25/2023 12:07 PM EST) Sodium 139 135 - 145 mmol/L [facility] Potassium 4.7 3.3 - 5.1 mmol/L [facility] Chloride 105 96 - 108 mmol/L [facility] Carbon Dioxide 27 22 - 29 mmol/L [facility] Anion Gap 12 12 - 20 [facility] Urea Nitrogen (BUN) 25(H) 9 - 16 mg/dL [facility] Creatinine, Serum 0.98 0.5 - 1.4 mg/dL [facility] Creatinine Clr Calc Pharmacy 86.0 [facility] Comment:eGFR (calculated fro m the MDRD study equation) and eCrCl(calculated from the Cockcroft-Gault equation) are based ondifferent parameters and may not yield comparable results.If eCrCl result is absurd, please check patient'sheight/weight. Estimated Glomerular Filt Rate >60 [facility] Comment:NOTE: For -Am erican individuals, multiply the result by 1.210.Chronic Kidney Disease: Estimated GFR < 60 mL/min/[id number] Kidney Disease: Estimated GFR < 15 mL/min/1.73m2 Glucose 210(H) 60 - 115 mg/dL [facility] Calcium 9.0 8.4 - 10.2 mg/dL [facility] Bilirubin, Total 0.6 0.0 - 1.0 mg/dL [facility] Aspartate Amino Transferase 28 5 - 37 U/L [facility] Alanine Aminotransferase 31 0 - 40 U/L [facility] Total Protein 7.4 6.5 - 8.0 g/dL [facility] Albumin Level 4.2 3.5 - 5.0 g/dL [facility] Alkaline Phosphatase 103 39 - 117 U/L [facility] 06/25/2023 12:0 7 PM EST 06/25/2023 12:16 PM EST us Generic External Data Provider LAB BLOOD ORDERAB LES Final Result Performing Organization Address [facility] Co de Phone Number [facility] [address] [place] [phone] * (ABNORMAL) Prothrombin Time-INR (06/25/2023 12:07 PM EST) Prothrombin Time 13.8(H) 11.1 - 13.3 SEC [facility] INTERNATIONAL NORM RATIO 1.1 0.9 - 1.1 [facility] Comment:INTERNATIONAL NORMAL IZED RATIO (INR) REFERENCE [...] ORDERAB LES Final Result Performing Organization Address [facility] Co de Phone Number [facility] [address] [place] [phone] * (ABNORMAL) CBC auto differential (06/25/2023 12:07 PM EST) White Blood Count 8.3 4.8 - 10.8 X10*3/uL [facility] Red Blood Count 5.14 4.60 - 5.80 X10*6/uL [facility] Hemoglobin 15.5 14.0 - 18.0 g/dl [facility] Hematocrit 46.3 42.0 - 52.0 % [facility] Mean Corpuscular Volume 90.1 80.0 - 98.0 fL [facility] Mean Corpuscular Hemoglobin 30.2 27.0 - 33.0 pg [facility] Mean Corpuscular HGB Conc 33.5 31.0 - 36.0 g/dl [facility] Red Cell Distribution Width 13.5 11.0 - 16.0 % [facility] Platelet Count 203 160 - 400 X10*3/uL [facility] Mean Platelet Volume 10.7 9.4 - 12.4 fL [facility] Neutrophils Percent Auto 82.7(H) 45 - 73 % [facility] Imm Gran Pct Auto 0.4 0.0 - 0.4 % [facility] Lymphocytes Percent Auto 12.7(L) 20 - 40 % [facility] Monocytes Percent Auto 3.6 2 - 11 % [facility] Eosinophils Percent Auto 0.2 0 - 4 % [facility] Basophils Percent Auto 0.4 0 - 2 % [facility] NRBC Pct Auto 0.0 0.0 - 0.2 /100WBC [facility] Neutrophils Absolute Auto 6.8 2.0 - 8.3 x10*3/uL [facility] Imm Gran Abs Auto 0.03 0.00 - 0.03 X10*3/uL [facility] Lymphocytes Absolute Auto 1.1(L) 1.2 - 4.9 X10*3/uL [facility] Monocytes Absolute Auto 0.3 0.1 - 1.2 X10*3/uL [facility] Eosinophils Absolute Auto 0.0 0.0 - 0.4 X10*3/uL [facility] Basophils Absolute Auto 0.0 0.0 - 0.2 X10*3/uL [facility] NRBC Abs Auto 0.000 0.0 - 0.012 X10*3/uL [facility] 06/25/2023 12:0 7 PM EST 06/25/2023 12:16 PM EST us Generic External Data Provider LAB BLOOD ORDERAB LES Final Result [facility] [address] [place] [phone] documented in this encounter Visit Diagnoses Not on filedocumented in this encounter Care Teams Dog Races Manager Relationship Specialty Start Date End Date Whitney Flynn FNP [address] [place] [phone] PCP - General Family Medicine 12/16/21 documented as of this encounter
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
== END 2024-12-18 12:21 | disposition home or self-care (01) ==
LOC: HO.HHCX 12:20
PROVIDERS: PCP Student in an Organized Health Care Education/Training Program; Visit Provider Student in an Organized Health Care Education/Training Program
DX: M54.50 Low back pain, unspecified (principal); G89.29 Other chronic pain
CPT/HCPCS: 72110

== ENCOUNTER → 2024-12-18 12:36 | Outpatient (BNV) | payer MEDICAID, SELFPAY | PROVIDERS: PCP Student in an Organized Health Care Education/Training Program; Visit Provider Radiology Diagnostic Radiology | DX: M48.16 Ankylosing hyperostosis [Forestier], lumbar region (principal) | CPT/HCPCS: 72110 ==

== ENCOUNTER 2025-02-04 13:27 | Outpatient (REF) | payer MEDICAID, SELFPAY ==
--- NOTE | 2025-02-04 | EMG_ITS ---
Chief complaint: Numbness and pain in the bilateral hands, neck pain Reason for referral: G56.03 Carpal tunnel syndrome, bilateral upper limbs Referred by: Kathe Mayo MD Procedure done: Bilateral upper nerve conduction study performed with bilateral upper EMG Bilateral median and ulnar motor studies were performed bilateral median and ulnar mixed sensory studies were performed, radial sensory studies were performed and median and lateral antecubital brachial sensory studies were performed an EMG needle examination was performed. Right median motor distal latency was slightly prolonged with lift was normal. Bilateral median mixed distal latencies were slightly prolonged with mildly slow conduction velocities. Rest of the study did not reveal any abnormality. Impression: [id number] right and mild left median neuropathy across carpal tunnel MTDD
--- OUTSIDE RECORDS SUMMARY | 2025-02-04 16:35 | XMS_ITS | Encounter Summary ---
Author Organization [employer] Address [address] [facility] [address] [place] [address] Care Team Providers Care Reefer Truck Driver Name Role Phone [facility] Primary Care Provider [phone] Reason for Visit * Reason Comments Med Refill Encounter Details Date Type Department Care Team ([facility] st Contact Info) Description 01/30/[address] [facility] [address] [place] [address] [facility] [address] [place] [address] Primary hypertension Social History Tobacco Use Types [...] as of this encounter Plan of Treatment Not on file documented as of this encounter Visit Diagnoses Diagnosis Primary hypertension Unspecified essential hypertension documented in this encounter Additional Health Concerns Assessment Noted Time PHQ-9 Depression Total Score: 8 05/13/19 24 9:33 AM EST documented as of this encounter Care Teams Reefer Truck Driver Relationship Specialty Start Date End Date Whitney Flynn FNP [address] [place] [phone] PCP - General Family Medicine 12/16/21 documented as of this encounter
--- OUTSIDE RECORDS SUMMARY | 2025-02-04 16:36 | XMS_ITS | Encounter Summary ---
Author Organization [employer] Address [address] [place] [address] Care Team Providers Care Drafter Geophysical Name Role Phone Whitney Flynn [facility] Primary Care Provider [phone] Encounter Details Date Type Department Care Team (Late st Contact Info) Description 02/28/2023 Orders Only [facility] [address] [place] [address] Cat Hernadez LPN Social History Tobacco Use [...] on file documented as of this encounter Procedures Procedure [...] Opiate Screen Urine Not Detected Not Detect [facility] Comment:Opiate cut-off is 30 0 ng/mL.Positive results are unconfirmed and should not be used fornon-medical purposes. Barbiturates, Urine Not Detected Not Detect [facility] Comment:Barbiturate cut-off is 200 ng/mL.Positive results are unconfirmed and should not be used fornon-medical purposes. Phencyclidine Screen Urine Not Detected Not Detect [facility] Comment:Phencyclidine cut-of f is 25 ng/mL.Positive results are unconfirmed and should not be used fornon-medical purposes. Amphetamine Screen Urine Not Detected Not Detect [facility] Comment:Amphetamine cut-off is 1000 ng/mL.Positive results are unconfirmed and should not be used fornon-medical purposes. Benzodiazepines Screen Urine Not Detected Not Detect [facility] Comment:Benzodiazepine cut-o ff is 200 ng/mL.Positive results are unconfirmed and should not be used fornon-medical purposes. Cocaine Screen Urine Not Detected Not Detect [facility] Comment:Cocaine cut-off is 3 00 ng/mL.Positive results are unconfirmed and should not be used fornon-medical purposes. Cannabinoid Screen Urine Not Detected Not Detect [facility] Comment:Cannabinoid cut-off is 50 ng/mL.Positive results are unconfirmed and should not be used fornon-medical purposes. FENTANYL URINE Not Detected Not Detect [facility] Comment:Fentanyl cut-off is 1 ng/mL.Positive results are unconfirmed and should not be used fornon-medical purposes. 06/25/2023 2:31 PM EST 06/25/2023 2:33 PM EST Generic External Data Provider LAB URINE ORDERAB LES Final Result Performing Organization Address [facility] Co de Phone Number [facility] [address] [place] [phone] * (ABNORMAL) Urinalysis, Complete, with Reflex to Culture (06/25/2023 2:31 PM EST) Color Urine Yellow [facility] Appearance Urine Clear [facility] PH 7.0 5.0 - 9.0 [facility] Glucose Urine UA >=1000(A) Negative mg/dL [facility] Urine Blood Negative Negative [facility] Specific Trail - Urine >=1.030(H) 1.005 - 1.025 [facility] Urine Protein Trace Neg-Trace mg/dL [facility] Urine Ketones 15 Negative mg/dL [facility] Nitrite Urine Negative Negative [facility] Leukocyte Esterase Urine Negative Negative [facility] RBC Urine 0-2 0 - 2 /HPF [facility] Urine WBC 0-5 0 - 5 /HPF [facility] Urine Squamous Epithelial Cell 0-2 0 - 2 /HPF [facility] Urine Bacteria None Seen None Seen [facility] Hyaline Casts, Urine 0-2 0 - 2 /LPF [facility] 06/25/2023 2:31 PM EST 06/25/2023 2:33 PM EST Narrative [facility] - 06/25/2023 2:43 PM EST [id number], Clean Catch Generic External Data Provider LAB URINE ORDERAB LES Final Result Performing Organization Address [facility] Co de Phone Number [facility] [address] [place] [phone] [phone] * (ABNORMAL) Glucose, Whole Blood (06/25/2023 12:08 PM EST) [facility] Glucose, Whole Blood 189(H) 60 - 115 mg/dL [facility] Comment:METER #: [id number] 06/25/2023 12:0 8 PM EST 06/25/2023 12:11 PM EST Generic External Data Provider LAB BLOOD ORDERAB LES Final Result Performing Organization Address [facility]/ZIP Co de Phone Number [facility] [address] [place] [phone] * Lipase (06/25/2023 12:07 PM EST) [facility] Lipase 20 8 - 78 U/L [facility] 06/25/2023 12:0 7 PM EST 06/25/2023 12:16 PM EST Generic External Data Provider LAB BLOOD ORDERAB LES Final Result Performing Organization Address [facility] Co de Phone Number [facility] [address] [place] [phone] * Ethanol (06/25/2023 12:07 PM EST) [facility] ETHANOL (MG/DL) IN SER/PLAS <10 mg/dL [facility] Comment:Serum/plasma ethanol results are to be used formedical/treatment purposes only. 06/25/2023 12:0 7 PM EST 06/25/2023 12:16 PM EST Generic External Data Provider LAB BLOOD ORDERAB LES Final Result Performing Organization Address [facility] Co de Phone Number [facility] [address] [place] [phone] * SARS-CoV-2 RNA, Influenza A/B, and RSV RNA, Ql NAAT (06/25/2023 12:07 PM EST) [facility] Influenza A PCR NEGATIVE Negative [facility] Influenza B PCR NEGATIVE Negative [facility] Resp Syncy Virus RNA Qual PCR NEGATIVE Negative [facility] SARS COV2 PCR NEGATIVE Negative [facility] Comment:All test results mus t be [...] use by authorized laboratories.Testing performed on the [employer] GeneXpert utilizingreal-time RT-PCR.All SARS CoV2 and positive influenza A/B results arereported to [facility]. 06/25/2023 12:0 7 PM EST 06/25/2023 12:16 PM EST Generic External Data Provider LAB MICROBIOLOGY - GENERAL ORDERABLES Final Result Performing Organization Address [facility]/ZIP Co de Phone Number [facility] [address] [place] [phone] * High Sensitivity Troponin I (06/25/2023 12:07 PM EST) TROPONIN I HIGH SENSITIVITY 4.9 <3.5 - 35.0 ng/L [facility] Comment:The [employer] high sens itivity Troponin-I results should beused in conjunction with other diagnostic information suchas ECG, clinical observations and information, and patientsymptoms to aid in the diagnosis of [place]. 06/25/2023 12:0 7 PM EST 06/25/2023 12:16 PM EST us Generic External Data Provider LAB BLOOD ORDERAB LES Final Result Performing Organization Address [facility]/ZIP Co de Phone Number [facility] [address] [place] [phone] * (ABNORMAL) Comprehensive Metabolic Panel (06/25/2023 12:07 PM EST) Sodium 139 135 - 145 mmol/L [facility] Potassium 4.7 3.3 - 5.1 mmol/L [facility] Chloride 105 96 - 108 mmol/L [facility] Carbon Dioxide 27 22 - 29 mmol/L [facility] Anion Gap 12 12 - 20 [facility] Urea Nitrogen (BUN) 25(H) 9 - 16 mg/dL [facility] Creatinine, Serum 0.98 0.5 - 1.4 mg/dL [facility] Creatinine Clr Calc Pharmacy 86.0 [facility] Comment:eGFR (calculated fro m the MDRD study equation) and eCrCl(calculated from the Cockcroft-Gault equation) are based ondifferent parameters and may not yield comparable results.If eCrCl result is absurd, please check patient'sheight/weight. Estimated Glomerular Filt Rate >60 [facility] Comment:NOTE: For -Am erican individuals, multiply the result by 1.210.Chronic Kidney Disease: Estimated GFR < 60 mL/min/[id number] Kidney Disease: Estimated GFR < 15 mL/min/1.73m2 Glucose 210(H) 60 - 115 mg/dL [facility] Calcium 9.0 8.4 - 10.2 mg/dL [facility] Bilirubin, Total 0.6 0.0 - 1.0 mg/dL [facility] Aspartate Amino Transferase 28 5 - 37 U/L [facility] Alanine Aminotransferase 31 0 - 40 U/L [facility] Total Protein 7.4 6.5 - 8.0 g/dL [facility] Albumin Level 4.2 3.5 - 5.0 g/dL [facility] Alkaline Phosphatase 103 39 - 117 U/L [facility] 06/25/2023 12:0 7 PM EST 06/25/2023 12:16 PM EST us Generic External Data Provider LAB BLOOD ORDERAB LES Final Result [facility] [address] [place] [phone] * (ABNORMAL) Prothrombin Time-INR (06/25/2023 12:07 PM EST) [facility] Prothrombin Time 13.8(H) 11.1 - 13.3 SEC [facility] INTERNATIONAL NORM RATIO 1.1 0.9 - 1.1 [facility] Comment:INTERNATIONAL NORMAL IZED RATIO (INR) [...] Provider LAB BLOOD ORDERAB LES Final Result [facility] [address] [place] [phone] * (ABNORMAL) CBC auto differential (06/25/2023 12:07 PM EST) [facility] White Blood Count 8.3 4.8 - 10.8 X10*3/uL [facility] Red Blood Count 5.14 4.60 - 5.80 X10*6/uL [facility] Hemoglobin 15.5 14.0 - 18.0 g/dl [facility] Hematocrit 46.3 42.0 - 52.0 % [facility] Mean Corpuscular Volume 90.1 80.0 - 98.0 fL [facility] Mean Corpuscular Hemoglobin 30.2 27.0 - 33.0 pg [facility] Mean Corpuscular HGB Conc 33.5 31.0 - 36.0 g/dl [facility] Red Cell Distribution Width 13.5 11.0 - 16.0 % [facility] Platelet Count 203 160 - 400 X10*3/uL [facility] Mean Platelet Volume 10.7 9.4 - 12.4 fL [facility] Neutrophils Percent Auto 82.7(H) 45 - 73 % [facility] Imm Gran Pct Auto 0.4 0.0 - 0.4 % [facility] Lymphocytes Percent Auto 12.7(L) 20 - 40 % [facility] Monocytes Percent Auto 3.6 2 - 11 % [facility] Eosinophils Percent Auto 0.2 0 - 4 % [facility] Basophils Percent Auto 0.4 0 - 2 % [facility] NRBC Pct Auto 0.0 0.0 - 0.2 /100WBC [facility] Neutrophils Absolute Auto 6.8 2.0 - 8.3 x10*3/uL [facility] Imm Gran Abs Auto 0.03 0.00 - 0.03 X10*3/uL [facility] Lymphocytes Absolute Auto 1.1(L) 1.2 - 4.9 X10*3/uL [facility] Monocytes Absolute Auto 0.3 0.1 - 1.2 X10*3/uL [facility] Eosinophils Absolute Auto 0.0 0.0 - 0.4 X10*3/uL [facility] Basophils Absolute Auto 0.0 0.0 - 0.2 X10*3/uL [facility] NRBC Abs Auto 0.000 0.0 - 0.012 X10*3/uL [facility] 06/25/2023 12:0 7 PM EST 06/25/2023 12:16 PM EST us Generic External Data Provider LAB BLOOD ORDERAB LES Final Result [facility] [address] [place] [phone] documented in this encounter Visit Diagnoses Not on filedocumented in this encounter Care Teams Drafter Geophysical Relationship Specialty Start Date End Date Whitney Flynn FNP [address] [place] [phone] PCP - General Family Medicine 12/16/21 documented as of this encounter
--- OUTSIDE RECORDS SUMMARY | 2025-02-04 16:36 | XMS_ITS | Encounter Summary ---
Author Organization [employer] Address [address] [place] [address] [address] [place] [address] Care Team Providers Care Cow Rider Name Role Phone Whitney Flynn [facility] Primary Care Provider [phone] Reason for Visit * Reason Comments Med Refill Encounter Details Date Type Department Care Team (Late st Contact Info) Description 02/28/2023 Refill [facility] [address] [place], [place] [phone] Name, MD Damion [address] [place] [address] Social History Tobacco Use Types Packs/Day Years [...] on filedocumented in this encounter Care Teams Cow Rider Relationship Specialty Start Date End Date RinaWhitney guillenMARCELL [address] [place] [phone] PCP - General Family Medicine 12/16/21 documented as of this encounter
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
== END 2025-02-04 13:28 | disposition home or self-care (01) ==
LOC: HO.NEURO 13:27
PROVIDERS: PCP Student in an Organized Health Care Education/Training Program; Visit Provider Student in an Organized Health Care Education/Training Program
DX: G56.03 Carpal tunnel syndrome, bilateral upper limbs (principal)
CPT/HCPCS: 95886; 95913

== ENCOUNTER → 2025-02-04 14:00 | Outpatient (BNV) | payer MEDICAID, SELFPAY | PROVIDERS: PCP Student in an Organized Health Care Education/Training Program; Visit Provider Psychiatry & Neurology Neurology | DX: G56.03 Carpal tunnel syndrome, bilateral upper limbs (principal) | CPT/HCPCS: 95886; 95913 ==